=== PATIENT | male | born 1950 | race Caucasian/White ===

== ENCOUNTER → 2017-07-17 | Outpatient (REF) | payer OTHER ==
[2017-07-17 11:04] LABS: INR 3.43; PROTHROMBIN TIME 36.2 SECONDS (12.4-14.5)
== END ==
LOC: M LAB REF 10:10
DX: Z51.81 Encounter for therapeutic drug level monitoring (principal); Z86.711 Personal history of pulmonary embolism
CPT/HCPCS: 85610

== ENCOUNTER 2017-08-20 12:13 | Day surgery (SDC) | payer MEDICARE ==
[2017-08-20] MEDS ORDERED: NS 1,000 ML IV (13:00)
[2017-08-20] MEDS ORDERED: LIDOCAINE 2% INJ 100 MG/5 ML SDV (FOR ANES.) As Ordered (14:02)
[2017-08-20] MEDS ORDERED: PROPOFOL 200 MG/20 ML VIAL As Ordered (14:02)
== END 2017-08-20 14:20 | disposition home or self-care (01) ==
LOC: M OPP 12:13
DX: K64.0 First degree hemorrhoids (principal); K63.5 Polyp of colon; R19.5 Other fecal abnormalities; E78.00 Pure hypercholesterolemia, unspecified; Z79.899 Other long term (current) drug therapy; Z79.01 Long term (current) use of anticoagulants; Z87.891 Personal history of nicotine dependence; Z86.718 Personal history of other venous thrombosis and embolism
CPT/HCPCS: 45380

== ENCOUNTER → 2024-03-27 | Outpatient (CLI) | payer MEDICARE ==
[~2024-03-27] MED LIST: ATOR1TAB21 PO; BISA10SU2; BISA5TA; COUM1TAB17; COUM2.5T17 PO; PERC5TAB8; WARF-23 PO
== END ==
LOC: M RAD 14:06
PROVIDERS: ATTEND Internal Medicine
DX: Z12.2 Encounter for screening for malignant neoplasm of respiratory organs (principal); F17.211 Nicotine dependence, cigarettes, in remission